=== PATIENT | female | born 1965 | race Caucasian/White ===

== ENCOUNTER 2020-07-09 14:09 | Outpatient (RCR) | payer MEDICARE, MEDICAID, SELFPAY ==
--- NOTE | 2020-07-09 15:52 | PCPTNOTE ---
Patient:Layne Hutson Date of :1965 Wheelchair Assessment: [facility] The patient has been evaluated for wheelchair seating and recommendations have been made, with assistance of the DME provider Divya villatoro. The findings have been scanned into the patient's EMR. Please review, sign, date and return this recognition of care provided. I agree with and certify that the following plan for DME equipment is medically necessary. doctor signature date
== END 2020-07-12 07:57 | disposition home or self-care (01) ==
LOC: ANHPT 14:09
PROVIDERS: PCP Family Medicine; Visit Provider Nurse Practitioner Family
DX: G82.20 Paraplegia, unspecified (principal)
CPT/HCPCS: 97163

== ENCOUNTER → 2023-07-31 13:42 | Outpatient (REF) | payer MEDICARE, MEDICAID, SELFPAY | LOC: ANHLAB 13:42 | PROVIDERS: PCP Family Medicine; Visit Provider Plastic Surgery | DX: D23.4 Other benign neoplasm of skin of scalp and neck (principal) | CPT/HCPCS: 88304 ==